=== PATIENT | female | born 1985 | race Caucasian/White ===

== ENCOUNTER 2016-08-20 22:37 | Emergency (ER) | payer OTHER ==
[~2016-08-20] VITALS: Ht 154.9 cm; Wt 69.8 kg
[~2016-08-20 22:37] MED LIST: ADVIL200 MG PO; ALBUTEROL SULF8.5 GM IH; ANTIVERT12.5 MG PO; BACTRIM,SEPT1 TABLET PO; BUSPAR10 MG PO; CITALOPRAM HBR20 MG PO; CLINDAMYCIN HC300 MG PO; FIORICET 50-301 EACH PO; FLEXERIL10 MG PO; IMITREX6 MG/0.52 SC; MOTRIN600 MG PO; MOTRIN800 MG PO; Motrin PO; NAPROXEN500 MG PO; NOHOMEMEDS; PHENERGAN-CODE120 ML PO; PREDNISONE10 MG PO; PROZAC40 MG PO; TAMIFLU75 MG PO; TESSALON PERLE100 MG PO; TYLENOL REGULA325 MG PO; VICODIN 5-3001 EACH PO; ZANTAC150 M1 PO; ZITHROMAX Z-PA250 MG PO; ZOFRAN4 MG PO; ZOLOFT25 MG PO
[2016-08-20 23:01] LABS: HEMATOCRIT 40.4 % (36.0-46.0); MCH 28.9 PG (29.0-34.0); MCHC 33.9 G/DL (30.0-36.0); MCV 85.2 FL (83-99); MEAN PLAT.VOLUME 10.8 uM^3 (9.5-12.4); PLATELET COUNT 311 K/uL (156-360); RBC DIS.WIDTH-CV 12.4 % (11.8-14.6); RBC DIS.WIDTH-SD 38.1 % (39-53); RED BLOOD COUNT 4.74 M/uL (3.80-5.20)
[2016-08-20 23:11] LABS: CHLORIDE 104 mEq/L (99-109); POTASSIUM 3.8 mEq/L (3.7-5.4); SODIUM 138 mEq/L (136-147)
[2016-08-20 23:13] LABS: GLUCOSE 107 mg/dL (70-99)
[2016-08-20 23:14] LABS: ANION GAP 8 MEQ/L (2-14)
[2016-08-20 23:15] LABS: TOTAL BILIRUBIN 0.4 mg/dL (0.0-1.0)
[2016-08-20 23:17] LABS: ALKALINE PHOSPHATASE 75 IU/L (3-129); GFR ESTIMATE (CALCULATED) > 59 mL/min/
[2016-08-20 23:18] LABS: UREA NITROGEN (BUN) 13 mg/dL (9-23)
[2016-08-20 23:27] LABS: QUANTITATIVE HCG < 4.0 MIU/ML
[2016-08-20 23:35] LABS: ADD MIUA? YES; BILIRUBIN NEGATIVE; BLOOD NEGATIVE; COLOR YELLOW ((YELLOW)); GLUCOSE (STRIP) NEGATIVE; KETONES NEGATIVE; LEUKOCYTES SMALL; NITRITE NEGATIVE; PROTEIN (STRIP) 30; SPECIFIC GRAVITY 1.021 (1.000-1.030); UROBILINOGEN 0.2 MG/DL (0.2-1.0)
[2016-08-20 23:59] LABS: BACTERIA NONE SEEN /HPF; EPITHELIAL CELLS 1+ /HPF; MUCUS 2+ /LPF; RED BLOOD CELLS 0-5 /HPF (0-5); UCUL ADDED? NO
[2016-08-21] MEDS ORDERED: CIPRO500 MG PO (01:29)
[2016-08-21 01:54] VITALS: BP 130/84
== END 2016-08-21 01:55 | disposition home or self-care (01) ==
LOC: EME 22:37
DX: N83.291 Other ovarian cyst, right side (principal); N39.0 Urinary tract infection, site not specified; Z98.51 Tubal ligation status
CPT/HCPCS: 74177; 80053; 81003; 84702; 85027; 99281; 99285; J2270; J2405; J7030

== ENCOUNTER 2016-10-06 16:28 | Emergency (ER) | payer OTHER ==
[~2016-10-06] VITALS: Ht 154.9 cm; Wt 68.8 kg
[~2016-10-06 16:28] MED LIST changes: +CIPRO500 MG PO
[2016-10-06 17:07] LABS: HEMATOCRIT 41.5 % (36.0-46.0); MCH 29.7 PG (29.0-34.0); MCHC 34.5 G/DL (30.0-36.0); MCV 86.1 FL (83-99); MEAN PLAT.VOLUME 12.6 uM^3 (9.5-12.4); PLATELET COUNT 200 K/uL (156-360); RBC DIS.WIDTH-CV 12.2 % (11.8-14.6); RBC DIS.WIDTH-SD 38.2 % (39-53); RED BLOOD COUNT 4.82 M/uL (3.80-5.20); WHITE BLOOD COUNT 12.3 K/uL (4.1-10.2)
[2016-10-06 17:19] LABS: CHLORIDE 105 mEq/L (99-109); POTASSIUM 5.6 mEq/L (3.7-5.4); SODIUM 139 mEq/L (136-147)
[2016-10-06 17:21] LABS: GLUCOSE 70 mg/dL (70-99)
[2016-10-06 17:22] LABS: ANION GAP 8 MEQ/L (2-14)
[2016-10-06 17:23] LABS: TOTAL BILIRUBIN 0.5 mg/dL (0.0-1.0)
[2016-10-06 17:24] LABS: ALKALINE PHOSPHATASE 74 IU/L (3-129)
[2016-10-06 17:25] LABS: GFR ESTIMATE (CALCULATED) > 59 mL/min/
[2016-10-06 17:25] LABS: ADD MIUA? YES; BILIRUBIN NEGATIVE; BLOOD SMALL; COLOR YELLOW ((YELLOW)); GLUCOSE (STRIP) NEGATIVE; KETONES NEGATIVE; LEUKOCYTES LARGE; NITRITE NEGATIVE; PROTEIN (STRIP) NEGATIVE; SPECIFIC GRAVITY 1.015 (1.000-1.030); UROBILINOGEN 0.2 MG/DL (0.2-1.0)
[2016-10-06 17:26] LABS: UREA NITROGEN (BUN) 9 mg/dL (9-23)
[2016-10-06 17:28] LABS: LIPASE 34 U/L (1.0-51.0)
[2016-10-06 17:38] LABS: QUANTITATIVE HCG < 4.0 MIU/ML
[2016-10-06 17:43] LABS: BACTERIA RARE /HPF; EPITHELIAL CELLS 2+ /HPF; MUCUS 1+ /LPF; RED BLOOD CELLS 0-5 /HPF (0-5); UCUL ADDED? NO; UNCLASSIFIED CRYSTALS 1+ /HPF; WHITE BLOOD CELLS 30-40 /HPF (0-5)
[2016-10-06] MEDS ORDERED: BACTRIM,SEPT1 TABLET PO (18:56)
[2016-10-06] MEDS ORDERED: MOTRIN600 MG PO (18:56)
[2016-10-06 19:27] VITALS: BP 117/81
== END 2016-10-06 19:28 | disposition home or self-care (01) ==
LOC: EME 16:28
PROVIDERS: Physician Assistant
DX: N30.00 Acute cystitis without hematuria (principal); R10.30 Lower abdominal pain, unspecified
CPT/HCPCS: 74177; 80053; 81003; 83690; 84702; 85027; 99281; 99283; J1885

== ENCOUNTER 2016-12-23 23:55 | Emergency (ER) | payer OTHER ==
[~2016-12-23] VITALS: Ht 157.5 cm; Wt 73.0 kg
[2016-12-24 00:26] LABS: HEMATOCRIT 37.9 % (36.0-46.0); MCHC 34.3 G/DL (30.0-36.0); MCV 84.6 FL (83-99); MEAN PLAT.VOLUME 11.3 uM^3 (9.5-12.4); PLATELET COUNT 238 K/uL (156-360); RBC DIS.WIDTH-SD 36.3 % (39-53); RED BLOOD COUNT 4.48 M/uL (3.80-5.20); WHITE BLOOD COUNT 9.9 K/uL (4.1-10.2)
[2016-12-24 00:53] LABS: CHLORIDE 105 mEq/L (99-109); POTASSIUM 3.6 mEq/L (3.7-5.4); SODIUM 140 mEq/L (136-147)
[2016-12-24 00:55] LABS: GLUCOSE 95 mg/dL (70-99)
[2016-12-24 00:57] LABS: ANION GAP 10 MEQ/L (2-14)
[2016-12-24 00:59] LABS: GFR ESTIMATE (CALCULATED) > 59 mL/min/
[2016-12-24 01:00] LABS: UREA NITROGEN (BUN) 12 mg/dL (9-23)
[2016-12-24 01:07] LABS: TROP-I INTERPRETATION NEGATIVE; TROPONIN-I < 0.01 ng/mL (0.0-0.30)
[2016-12-24 01:29] LABS: D-DIMER ELISA < 150.00 ng/mLDDU (<230)
[2016-12-24 01:42] LABS: QUANTITATIVE HCG < 4.0 MIU/ML
[2016-12-24 02:24] LABS: TROP-I INTERPRETATION NEGATIVE; TROPONIN-I < 0.01 ng/mL (0.0-0.30)
[2016-12-24 02:42] VITALS: BP 117/84
== END 2016-12-24 02:42 | disposition home or self-care (01) ==
LOC: EME 23:55
PROVIDERS: Emergency Medicine
DX: R07.89 Other chest pain (principal); R14.2 Eructation
CPT/HCPCS: 71020; 80048; 84484; 84702; 85027; 85379; 93005; 99281; 99285

== ENCOUNTER 2017-07-25 18:20 | Emergency (ER) | payer OTHER ==
[~2017-07-25] VITALS: Ht 154.9 cm; Wt 72.9 kg
[2017-07-25 18:56] LABS: HEMATOCRIT 39.3 % (36.0-46.0); HEMOGLOBIN 13.7 G/DL (11.9-15.5); MCH 29.8 PG (29.0-34.0); MCHC 34.9 G/DL (30.0-36.0); MCV 85.6 FL (83-99); PLATELET COUNT 249 K/uL (156-360); RBC DIS.WIDTH-CV 12.5 % (11.8-14.6); RBC DIS.WIDTH-SD 38.6 % (39-53); RED BLOOD COUNT 4.59 M/uL (3.80-5.20); WHITE BLOOD COUNT 8.6 K/uL (4.1-10.2)
[2017-07-25 19:09] LABS: CHLORIDE 108 mEq/L (99-109); POTASSIUM 3.7 mEq/L (3.7-5.4); SODIUM 145 mEq/L (136-147)
[2017-07-25 19:11] LABS: GLUCOSE 81 mg/dL (70-99)
[2017-07-25 19:15] LABS: CREATININE 0.7 mg/dL (0.6-1.3); GFR ESTIMATE (CALCULATED) > 59 mL/min/
[2017-07-25 19:16] LABS: UREA NITROGEN (BUN) 12 mg/dL (9-23)
[2017-07-25 19:20] LABS: APPEARANCE SL.HAZY ((CLEAR)); BILIRUBIN NEGATIVE; BLOOD LARGE; COLOR YELLOW ((YELLOW)); GLUCOSE (STRIP) NEGATIVE; KETONES NEGATIVE; LEUKOCYTES TRACE; NITRITE NEGATIVE; PROTEIN (STRIP) 30; SPECIFIC GRAVITY 1.019 (1.000-1.030); UROBILINOGEN 0.2 MG/DL (0.2-1.0)
[2017-07-25 19:23] LABS: QUANTITATIVE HCG < 4.0 MIU/ML
[2017-07-25 19:33] LABS: BACTERIA NONE SEEN /HPF; EPITHELIAL CELLS 2+ /HPF; MUCUS TRACE /LPF; UCUL ADDED? YES
[2017-07-25] MEDS ORDERED: ZOFRAN4 MG PO (21:58)
[2017-07-25] MEDS ORDERED: MOTRIN800 MG PO (21:58)
[2017-07-25] MEDS ORDERED: FLOMAX0.4 MG PO (21:58)
[2017-07-25 22:10] VITALS: BP 125/81
== END 2017-07-25 22:11 | disposition home or self-care (01) ==
LOC: EME 18:20
PROVIDERS: Nurse Practitioner Family
DX: N20.0 Calculus of kidney (principal); Z88.0 Allergy status to penicillin; R10.9 Unspecified abdominal pain
CPT/HCPCS: 74176; 80048; 81003; 84702; 85027; 87077; 87086; 87186; 99281; 99285; J1885; J7030

== ENCOUNTER 2017-08-17 16:26 | Emergency (ER) | payer OTHER ==
[~2017-08-17] VITALS: Ht 154.9 cm; Wt 70.9 kg
[~2017-08-17 16:26] MED LIST changes: +FLOMAX0.4 MG PO
[2017-08-17 18:55] VITALS: BP 127/86
== END 2017-08-17 18:56 | disposition home or self-care (01) ==
LOC: EME 16:26
DX: G43.909 Migraine, unspecified, not intractable, without status migrainosus (principal); Z88.0 Allergy status to penicillin; Z88.1 Allergy status to other antibiotic agents
CPT/HCPCS: 99281; 99284; J1200; J1885; J2765; J7030

== ENCOUNTER 2017-09-07 18:16 | Emergency (ER) | payer OTHER ==
[~2017-09-07] VITALS: Ht 154.9 cm; Wt 70.5 kg
[2017-09-07] MEDS ORDERED: ZITHROMAX Z-PA250 MG PO (19:44)
[2017-09-07 19:54] VITALS: BP 119/99
== END 2017-09-07 19:55 | disposition home or self-care (01) ==
LOC: EME 18:16
DX: J02.0 Streptococcal pharyngitis (principal); Z98.51 Tubal ligation status; Z88.0 Allergy status to penicillin; Z88.1 Allergy status to other antibiotic agents
CPT/HCPCS: 87651 90; 99281; 99284; J1100

== ENCOUNTER 2017-10-03 13:06 | Emergency (ER) | payer OTHER ==
[~2017-10-03] VITALS: Ht 154.9 cm; Wt 68.9 kg
[2017-10-03 13:28] LABS: HEMATOCRIT 41.6 % (36.0-46.0); HEMOGLOBIN 14.5 G/DL (11.9-15.5); MCH 29.4 PG (29.0-34.0); MCHC 34.9 G/DL (30.0-36.0); MCV 84.4 FL (83-99); PLATELET COUNT 274 K/uL (156-360); RBC DIS.WIDTH-CV 12.7 % (11.8-14.6); RBC DIS.WIDTH-SD 38.6 % (39-53); RED BLOOD COUNT 4.93 M/uL (3.80-5.20); WHITE BLOOD COUNT 9.5 K/uL (4.1-10.2)
[2017-10-03 13:38] LABS: CHLORIDE 108 mEq/L (99-109); POTASSIUM 3.7 mEq/L (3.7-5.4); SODIUM 139 mEq/L (136-147)
[2017-10-03 13:40] LABS: GLUCOSE 86 mg/dL (70-99)
[2017-10-03 13:41] LABS: TOTAL PROTEIN 7.8 g/dL (6.4-8.3)
[2017-10-03 13:42] LABS: TOTAL BILIRUBIN 0.5 mg/dL (0.0-1.0)
[2017-10-03 13:44] LABS: ALKALINE PHOSPHATASE 97 IU/L (3-129); CREATININE 0.8 mg/dL (0.6-1.3); GFR ESTIMATE (CALCULATED) > 59 mL/min/
[2017-10-03 13:45] LABS: UREA NITROGEN (BUN) 10 mg/dL (9-23)
[2017-10-03 13:46] LABS: AST (GOT) 13 IU/L (2-34)
[2017-10-03 13:47] LABS: ALT (GPT) 12 IU/L (3-49)
[2017-10-03 13:53] LABS: QUANTITATIVE HCG < 4.0 MIU/ML
[2017-10-03 14:36] LABS: APPEARANCE CLOUDY ((CLEAR)); BILIRUBIN NEGATIVE; BLOOD NEGATIVE; COLOR YELLOW ((YELLOW)); GLUCOSE (STRIP) NEGATIVE; KETONES NEGATIVE; LEUKOCYTES LARGE; NITRITE NEGATIVE; PROTEIN (STRIP) 30; SPECIFIC GRAVITY 1.023 (1.000-1.030)
[2017-10-03 14:50] LABS: BACTERIA 2+ /HPF; EPITHELIAL CELLS 2+ /HPF; MUCUS NONE SEEN /LPF; RED BLOOD CELLS NONE SEEN /HPF (0-5); UCUL ADDED? YES; WHITE BLOOD CELLS 30-40 /HPF (0-5)
[2017-10-03] MEDS ORDERED: MACROBID100 MG PO (15:38)
[2017-10-03] MEDS ORDERED: MOTRIN600 MG PO (15:38)
[2017-10-03] MEDS ORDERED: FLEXERIL10 MG PO (15:38)
[2017-10-03 15:44] VITALS: BP 114/88
== END 2017-10-03 15:45 | disposition home or self-care (01) ==
LOC: EME 13:06
DX: N39.0 Urinary tract infection, site not specified (principal); M54.16 Radiculopathy, lumbar region; Z88.0 Allergy status to penicillin; Z88.1 Allergy status to other antibiotic agents
CPT/HCPCS: 80053; 81003; 84702; 85027; 87086; 99281; 99283

== ENCOUNTER 2017-10-12 22:49 | Emergency (ER) | payer OTHER ==
[~2017-10-12] VITALS: Ht 154.9 cm; Wt 69.1 kg
[~2017-10-12 22:49] MED LIST changes: +MACROBID100 MG PO
[2017-10-13] MEDS ORDERED: BENADRYL50 MG PO (00:30)
[2017-10-13] MEDS ORDERED: PREDNISONE10 M1 PO (00:30)
[2017-10-13 00:50] VITALS: BP 117/97
== END 2017-10-13 00:51 | disposition home or self-care (01) ==
LOC: EME 22:49
DX: L50.9 Urticaria, unspecified (principal); Z88.0 Allergy status to penicillin; Z88.1 Allergy status to other antibiotic agents
CPT/HCPCS: 99281; 99283; J2930